=== PATIENT | female | born 1965 | race Caucasian/White ===

== ENCOUNTER → 2017-01-11 | Day surgery (SDC) | payer OTHER ==
[~2017-01-11] VITALS: Ht 165.1 cm; Wt 114.9 kg
[2017-01-11 08:01] LABS: HCT 43.7 % (37.0-47.0); HGB 14.3 g/dl (12.5-16.0); MCH 27.9 pg (25.0-31.0); MCHC 32.7 g/dL (32.0-36.0); MCV 85.4 fL (78.0-100.0); MPV 10.1 fL (6.0-9.5); RBC 5.12 M/uL (4.20-5.40); RDW 13.4 % (11.5-14.0); WBC 6.9 K/uL (4.0-10.5)
[2017-01-11 08:14] LABS: ALBUMIN 4.3 g/dL (3.5-5.0); BILIRUBIN - TOTAL 0.5 mg/dL (0.1-1.0); CREATININE 0.7 mg/dL (0.5-1.0); GLOBULIN (CALCULATION) 3.3 g/dL (2.2-4.2); TOTAL PROTEIN 7.6 g/dL (6.4-8.3)
[2017-01-11 08:15] LABS: POTASSIUM 5.5 mmol/L (3.5-5.1)
== END | disposition home or self-care (01) ==
LOC: FAS 07:18
PROVIDERS: Surgery
DX: Z12.11 Encounter for screening for malignant neoplasm of colon (principal); I10 Essential (primary) hypertension; E66.9 Obesity, unspecified; Z68.41 Body mass index [BMI] 40.0-44.9, adult; Z80.0 Family history of malignant neoplasm of digestive organs; Z98.84 Bariatric surgery status; Z82.49 Family history of ischemic heart disease and other diseases of the circulatory system; Z83.49 Family history of other endocrine, nutritional and metabolic diseases; Z79.899 Other long term (current) drug therapy
CPT/HCPCS: 36415; 80053; 84703; J2704